=== PATIENT | male | born 1955 ===

== ENCOUNTER → 2023-08-07 09:34 | Outpatient (REF) | payer MEDICARE, BC, SELFPAY | LOC: RAD 09:34 | PROVIDERS: ATTENDING PHYSICIAN Nurse Practitioner Family | DX: M25.512 Pain in left shoulder (principal) | CPT/HCPCS: 73030; 73060 ==

== ENCOUNTER → 2023-10-13 16:30 | Outpatient (REF) | payer MEDICARE, BC, SELFPAY | LOC: PAVMRI 16:30 | PROVIDERS: ATTENDING PHYSICIAN Nurse Practitioner Family | DX: M25.512 Pain in left shoulder (principal); S46.002D Unspecified injury of muscle(s) and tendon(s) of the rotator cuff of left shoulder, subsequent encounter | CPT/HCPCS: 73221 ==

== ENCOUNTER → 2023-12-16 09:19 | Outpatient (REF) | payer MEDICARE, BC, SELFPAY | LOC: HWRCS 09:19 | PROVIDERS: ATTENDING PHYSICIAN Internal Medicine; FAMILY PHYSICIAN Nurse Practitioner Family | DX: I25.10 Atherosclerotic heart disease of native coronary artery without angina pectoris (principal); I77.810 Thoracic aortic ectasia | CPT/HCPCS: 93306 ==

== ENCOUNTER 2024-03-16 06:15 | Day surgery (SDC) | payer MEDICARE, BC, SELFPAY ==
[2024-03-16] VITALS (9 sets, daily range): BP systolic 133–155; BP diastolic 77–90; BMI 23.1
[2024-03-16] MEDS: TYLENOL 1000 MG PO (11:04)
[2024-03-16] MEDS: CELEBREX 200 MG PO (11:04)
[2024-03-16] MEDS: NORMOSOL-R/PLASMALYTE-A 1000 IV (11:05)
[2024-03-16] MEDS: ZOFRAN 4 MG IV (16:34)
== END 2024-03-16 16:45 | disposition home or self-care (01) ==
LOC: SDS 06:15
PROVIDERS: ATTENDING PHYSICIAN Orthopaedic Surgery Hand Surgery
DX: S43.432A Superior glenoid labrum lesion of left shoulder, initial encounter (principal); S46.212A Strain of muscle, fascia and tendon of other parts of biceps, left arm, initial encounter; X58.XXXA Exposure to other specified factors, initial encounter; M75.42 Impingement syndrome of left shoulder
CPT/HCPCS: 23430; 29827; 29826; 29807; C1713